=== PATIENT | female | born 1995 | race Caucasian/White ===

== ENCOUNTER → 2021-10-24 | Outpatient (CLI) | payer BC, OTHER ==
[2021-10-24 13:33] LABS: HEMOGLOBIN 13.2 g/dl (12.0-15.5); MEAN CORPUSCULAR HEMOGLOBIN 31.7 pg (27.0-33.0); MEAN CORPUSCULAR HGB CONC 33.8 g/dl (32.0-36.5); MEAN CORPUSCULAR VOLUME 93.8 fl (80.0-96.0); PLATELET COUNT, AUTOMATED 343 10^3/uL (150-450); RED BLOOD COUNT 4.16 10^6/uL (4.00-5.40)
[2021-10-24 14:27] LABS: HEPATITIS C VIRUS ABY INDEX 0.2 INDEX (<0.8); HIV 1&2 SCREEN CENTAUR NEGATIVE (NEGATIVE)
[2021-10-24 15:37] LABS: GC DNA AMPLIFICATION NEGATIVE (NEGATIVE)
== END ==
LOC: M PLALAB 09:39
PROVIDERS: ATTEND Obstetrics & Gynecology
DX: Z34.81 Encounter for supervision of other normal pregnancy, first trimester (principal); Z3A.00 Weeks of gestation of pregnancy not specified

== ENCOUNTER → 2022-01-06 | Outpatient (CLI) | payer BC, OTHER | LOC: M WHC 08:00 | PROVIDERS: ATTEND Obstetrics & Gynecology | DX: Z36.89 Encounter for other specified antenatal screening (principal); Z3A.20 20 weeks gestation of pregnancy ==

== ENCOUNTER → 2022-01-16 | Outpatient (CLI) | payer OTHER | LOC: M WHC 08:18 | PROVIDERS: ATTEND Advanced Practice Midwife | DX: Z34.92 Encounter for supervision of normal pregnancy, unspecified, second trimester (principal); Z3A.00 Weeks of gestation of pregnancy not specified; Z53.9 Procedure and treatment not carried out, unspecified reason ==

== ENCOUNTER → 2022-02-07 | Outpatient (CLI) | payer BC, OTHER | LOC: M WHC 11:43 | PROVIDERS: ATTEND Advanced Practice Midwife | DX: Z34.92 Encounter for supervision of normal pregnancy, unspecified, second trimester (principal); Z3A.24 24 weeks gestation of pregnancy ==

== ENCOUNTER → 2022-02-24 | Outpatient (CLI) | payer BC, OTHER ==
[2022-02-24 17:33] LABS: HEMOGLOBIN 10.2 g/dl (12.0-15.5); MEAN CORPUSCULAR HEMOGLOBIN 31.9 pg (27.0-33.0); MEAN CORPUSCULAR HGB CONC 32.9 g/dl (32.0-36.5); MEAN CORPUSCULAR VOLUME 96.9 fl (80.0-96.0); PLATELET COUNT, AUTOMATED 305 10^3/uL (150-450); WHITE BLOOD COUNT 9.7 10^3/uL (4.0-10.0)
[2022-02-24 20:06] LABS: GC DNA AMPLIFICATION NEGATIVE (NEGATIVE)
== END ==
LOC: M PLALAB 13:48
PROVIDERS: ATTEND Obstetrics & Gynecology
DX: O34.219 Maternal care for unspecified type scar from previous cesarean delivery (principal)

== ENCOUNTER 2022-03-27 10:00 | Outpatient (CLI) | payer BC, OTHER ==
[~2022-03-27] VITALS: Ht 152.4 cm; Wt 66.3 kg
[2022-03-27 10:00] VITALS: BP 120/62
[~2022-03-27 10:00] MED LIST: IRON SUCROSE 500 MG in NS 250 ML OVER 4 HRS IV ONE
[2022-03-27 11:20] VITALS: BP 105/59
[2022-03-27 12:20] VITALS: BP 118/62
[2022-03-27 13:20] VITALS: BP 110/71
[2022-03-27 14:20] VITALS: BP 116/59
[2022-03-27 15:10] VITALS: BP 118/65
== END 2022-03-27 15:10 | disposition home or self-care (01) ==
LOC: M INFU 10:00
PROVIDERS: ATTEND Obstetrics & Gynecology
DX: D50.9 Iron deficiency anemia, unspecified (principal)

== ENCOUNTER → 2022-04-26 | Outpatient (REF) | payer OTHER, BC | LOC: M SFHCWAGY 13:09 | PROVIDERS: ATTEND Obstetrics & Gynecology | DX: O34.219 Maternal care for unspecified type scar from previous cesarean delivery (principal); Z3A.00 Weeks of gestation of pregnancy not specified ==

== ENCOUNTER → 2022-05-14 | Outpatient (CLI) | payer BC, OTHER ==
[~2022-05-14] MED LIST changes: -IRON SUCROSE 500 MG in NS 250 ML OVER 4 HRS IV ONE; +PREN1TAB11 PO
== END ==
LOC: M LABSMTC 11:02
PROVIDERS: ATTEND Anesthesiology
DX: Z01.812 Encounter for preprocedural laboratory examination (principal); Z20.822 Contact with and (suspected) exposure to COVID-19

== ENCOUNTER 2022-05-18 05:23 | Inpatient (IN) | payer BC, OTHER ==
[2022-05-18] VITALS (9 sets, daily range): BP systolic 100–127; BP diastolic 55–79
[~2022-05-18] VITALS: Ht 152.4 cm; Wt 71.4 kg
[2022-05-18] MEDS ORDERED: BICITRA 30ML SOLN UDC PO ONE (06:00)
[2022-05-18] MEDS ORDERED: LR 1,000 ML IV ONE (06:00)
[2022-05-18] MEDS ORDERED: ceFAZolin SOD 2 GM in IV 1 EA IV ONE (06:00)
[2022-05-18 06:39] LABS: HEMATOCRIT 34.4 % (36.0-47.0); HEMOGLOBIN 11.3 g/dl (12.0-15.5); MEAN CORPUSCULAR HEMOGLOBIN 30.7 pg (27.0-33.0); MEAN CORPUSCULAR HGB CONC 32.8 g/dl (32.0-36.5); MEAN CORPUSCULAR VOLUME 93.5 fl (80.0-96.0); PLATELET COUNT, AUTOMATED 275 10^3/uL (150-450); RED BLOOD COUNT 3.68 10^6/uL (4.00-5.40); WHITE BLOOD COUNT 7.4 10^3/uL (4.0-10.0)
[2022-05-18] MEDS ORDERED: LR 1,000 ML IV SCH ×3 (07:00→08:55)
[2022-05-18] MEDS ORDERED: OXYTOCIN INJ 10 UNITS/ML VIAL (J2590) As Ordered ONE (07:02)
[2022-05-18] MEDS ORDERED: MORPHINE PRES-FREE INJ 10 MG/10 ML VIAL As Ordered ONE ×2 (07:05→08:37)
[2022-05-18] MEDS ORDERED: KETOROLAC 60MG 2ML VIAL As Ordered ONE (07:59)
[2022-05-18] MEDS ORDERED: ONDANSETRON 4MG 2ML VIAL As Ordered ONE (07:59)
[2022-05-18] MEDS ORDERED: dexameTHASONE 4 MG/ML 1ML VIAL (J1100 PER 1MG) As Ordered ONE (07:59)
[2022-05-18] MEDS ORDERED: PHENYLephrine 500MCG 5ML (100MCG/ML) SYRINGE As Ordered ONE (08:02)
[2022-05-18] MEDS ORDERED: ePHEDrine SULFATE 25 MG/5 ML(5MG/ML) SYRINGE As Ordered ONE (08:02)
[2022-05-18] MEDS ORDERED: HYDROMORPHONE HCL 0.5 MG/ 0.5 ML SYRINGE (J1170 PER 1) IV PRN (08:15)
[2022-05-18] MEDS ORDERED: **NOTE PATIENT COMMENT** MISC XX SCH (08:15)
[2022-05-18] MEDS ORDERED: oxyCODONE 5MG TAB PO PRN (08:15)
[2022-05-18] MEDS ORDERED: NALOXONE INJ 0.4MG/1ML VIAL (J2310 PER 1MG) IV PRN ×2 (08:15)
[2022-05-18] MEDS ORDERED: diphenhydrAMINE 50MG/ML VIAL (J1200) IV PRN (08:15)
[2022-05-18] MEDS ORDERED: METOCLOPRAMIDE INJ 10MG/2ML VIAL (J2765 PER 1) IV PRN (08:15)
[2022-05-18] MEDS: SLF 3 ML SYR IV SCH ×3 (08:15→21:36)
[2022-05-18] MEDS ORDERED: ONDANSETRON 4MG 2ML VIAL IV PRN (08:15)
[2022-05-18] MEDS ORDERED: fentaNYL 100 MCG/2 ML INJECTION IV PRN (08:15)
[2022-05-18] MEDS ORDERED: MEPERIDINE INJ 25 MG/ML VIAL (J2175) IV PRN (08:15)
[2022-05-18] MEDS: DOCUSATE SODIUM 100MG CAPSULE PO SCH ×2 (09:00→21:35)
[2022-05-18] MEDS: PRENATAL VITAMINS CHEWABLE TABLET PO SCH (09:00)
[2022-05-18] MEDS: FERROUS SULFATE 325MG TAB PO SCH (09:00)
[2022-05-18] MEDS ORDERED: OXYTOCIN DRIP 30 UNITS in IV 1 EA IV SCH (09:30)
[2022-05-18] MEDS ORDERED: MOM 30ML SUSPENSION UDC PO PRN (09:30)
[2022-05-18] MEDS ORDERED: PERCOCET 5MG/325MG TAB PO PRN ×2 (09:30)
[2022-05-18] MEDS ORDERED: RHOGAM 300 MCG (1500 IU) INJ (J2790) IM SCH (09:30)
[2022-05-18] MEDS ORDERED: SIMETHICONE 80MG CHEW TAB PO PRN (09:30)
[2022-05-18] MEDS ORDERED: OXYTOCIN 30 UNITS IN 0.9% NaCl 500ML IV BAG (J2590) As Ordered ONE (09:59)
[2022-05-18] MEDS: KETOROLAC 30 MG/ML 1ML VIAL IV SCH ×2 (14:53→21:35)
[2022-05-19 02:00] VITALS: BP 104/56
[2022-05-19] MEDS: KETOROLAC 30 MG/ML 1ML VIAL IV SCH (03:18)
[2022-05-19 06:00] VITALS: BP 107/55
[2022-05-19 06:42] LABS: HEMATOCRIT 24.3 % (36.0-47.0); MEAN CORPUSCULAR HGB CONC 33.3 g/dl (32.0-36.5); PLATELET COUNT, AUTOMATED 208 10^3/uL (150-450); RED BLOOD COUNT 2.53 10^6/uL (4.00-5.40)
[2022-05-19 06:44] LABS: HEMOGLOBIN 8.1 g/dl (12.0-15.5)
[2022-05-19] MEDS: PRENATAL VITAMINS CHEWABLE TABLET PO SCH (08:29)
[2022-05-19] MEDS: FERROUS SULFATE 325MG TAB PO SCH (08:29)
[2022-05-19] MEDS: DOCUSATE SODIUM 100MG CAPSULE PO SCH ×2 (08:29→20:24)
[2022-05-19 10:00] VITALS: BP 106/56
[2022-05-19] MEDS: IBUPROFEN 800 MG TAB PO SCH ×2 (10:43→18:02)
[2022-05-19 14:00] VITALS: BP 100/57
[2022-05-19 18:00] VITALS: BP 115/65
[2022-05-19 22:11] VITALS: BP 102/53
[2022-05-20 02:00] VITALS: BP 100/57
[2022-05-20] MEDS: IBUPROFEN 800 MG TAB PO SCH ×2 (03:00→10:56)
[2022-05-20 06:32] VITALS: BP 102/53
[2022-05-20] MEDS: FERROUS SULFATE 325MG TAB PO SCH (08:59)
[2022-05-20] MEDS: PRENATAL VITAMINS CHEWABLE TABLET PO SCH (08:59)
[2022-05-20] MEDS: DOCUSATE SODIUM 100MG CAPSULE PO SCH (08:59)
[2022-05-20] MEDS ORDERED: MEASLES,MUMPS,RUBELLA VACCINE INJ (MMR-II) (90707) SC.IMMUN ONE (10:00)
[2022-05-20] MEDS ORDERED: COLA100C5 PO (10:25)
[2022-05-20] MEDS ORDERED: IBUP80TA PO (10:25)
[2022-05-20] MEDS ORDERED: PERCOCET PO (10:25)
== END 2022-05-20 11:54 | disposition home or self-care (01) | DRG 540 ==
LOC: M LDI 05:23 → M OBS 10:11
PROVIDERS: ADMIT Obstetrics & Gynecology; ATTEND Obstetrics & Gynecology
PROC: 10D00Z1 Extraction of Products of Conception, Low, Open Approach (ICD-10-PCS; principal; 2022-05-18 07:30)
DX: O34.211 Maternal care for low transverse scar from previous cesarean delivery (principal); Z37.0 Single live birth; Z3A.39 39 weeks gestation of pregnancy

== ENCOUNTER → 2023-04-24 | Outpatient (REF) | payer OTHER ==
[~2023-04-24] MED LIST changes: +COLA100C5 PO; +IBUP80TA PO; +PERCOCET PO
[2023-04-24 22:45] LABS: APPEARANCE, URINE HAZY (CLEAR); BACTERIA, URINE AUTO 1+ (NEGATIVE); BILIRUBIN, URINE AUTO NEGATIVE (NEGATIVE); BLOOD, URINE BLOOD 3+ (NEGATIVE); COLOR, URINE YELLOW (YELLOW); GLUCOSE, URINE (UA) AUTO NEGATIVE (NEGATIVE); KETONE, URINE AUTO NEGATIVE (NEGATIVE); LEUKOCYTE ESTERASE, URINE AUTO 3+ (NEGATIVE); MUCUS, URINE SMALL (NEGATIVE); NITRITE, URINE AUTO NEGATIVE (NEGATIVE); PROTEIN, URINE AUTO NEGATIVE (NEGATIVE); RBC, URINE AUTO 15 /HPF (0-3); SPECIFIC GRAVITY URINE AUTO 1.002 (1.002-1.035); SQUAMOUS EPITHELIAL CELL UR AU 0 /HPF (0-6); UROBILINOGEN, URINE AUTO 0.2 mg/dL (0.0-2.0); WBC, URINE AUTO 33 /HPF (0-3)
== END ==
LOC: M LAB REF 21:24
PROVIDERS: ATTEND Physician Assistant Medical
DX: N39.0 Urinary tract infection, site not specified (principal)

== ENCOUNTER 2023-08-26 09:26 | Emergency (ER) | payer BC, OTHER ==
[~2023-08-26] VITALS: Ht 152.4 cm; Wt 58.2 kg
[2023-08-26 10:25] LABS: BASO % 0.4 % (0.0-1.0); EOS # 0.1 10^3/uL (0.0-0.5); EOS % 1.8 % (0.0-3.0); HEMATOCRIT 39.9 % (36.0-47.0); HEMOGLOBIN 13.3 g/dl (12.0-15.5); LYMPH # 1.5 10^3/uL (1.5-5.0); LYMPH % 19.6 % (24.0-44.0); MEAN CORPUSCULAR HEMOGLOBIN 30.6 pg (27.0-33.0); MEAN CORPUSCULAR HGB CONC 33.3 g/dl (32.0-36.5); MEAN CORPUSCULAR VOLUME 91.9 fl (80.0-96.0); MONO # 0.8 10^3/uL (0.0-0.8); MONO % 11.2 % (2.0-8.0); NEUTROPHILS # 4.9 10^3/uL (1.5-8.5); NEUTROPHILS % 66.7 % (36.0-66.0); PLATELET COUNT, AUTOMATED 326 10^3/uL (150-450); RED BLOOD COUNT 4.34 10^6/uL (4.00-5.40); WHITE BLOOD COUNT 7.4 10^3/uL (4.0-10.0)
[2023-08-26 12:28] VITALS: BP 129/70; TEMP 99.2; O2SAT 99
== END 2023-08-26 12:29 | disposition home or self-care (01) ==
LOC: M ED 09:26
DX: O03.89 Complete or unspecified spontaneous abortion with other complications (principal); Z79.810 Long term (current) use of selective estrogen receptor modulators (SERMs)